=== PATIENT | female | born 1985 | race Two or more races ===

== ENCOUNTER 2024-12-10 16:16 | Inpatient (IN) | payer MEDICAID, SELFPAY ==
[2024-12-10] VITALS (7 sets, daily range): BP systolic 94–120; BP diastolic 53–73; PULSE 82–99; RESP 16–99; TEMP 36.8; BMI 26.9
[2024-12-10 19:15] LABS: Basophils # (Auto) 0.0 Thou/mm3 (0.0-0.2); Basophils % (Auto) 1 % (0-2.5); Eosinophils # (Auto) 0.1 Thou/mm3 (0.0-0.5); Eosinophils % (Auto) 1 % (0-10); Hematocrit 36.3 % (36.0-46.0); Hemoglobin 12.3 g/dL (12.0-16.0); Immature Granulocytes Auto 0.03 Thou/mm3 (0.00-0.00); Lymphocytes # (Auto) 1.5 Thou/mm3 (1.0-4.8); Lymphocytes % (Auto) 21 % (10-50); Mean Corpuscular HGB Conc 33.9 g/dl (31.0-37.0); Mean Corpuscular Hemoglobin 29.1 pg (25.0-35.0); Mean Corpuscular Volume 86 fL (80-100); Monocytes # (Auto) 0.7 Thou/mm3 (0.0-0.8); Monocytes % (Auto) 10 % (0-12); Neutrophils # (Auto) 4.8 Thou/mm3 (1.8-7.7); Neutrophils % (Auto) 66 % (37-80); Nucleated Red Blood Cell # 0.00 Thou/mm3 (0.00-0.00); Nucleated Red Blood Cell % 0 /100 WBC (0); Platelet Count 250 Thou/mm3 (140-440); RDW Standard Deviation 38.2 fL (36.4-46.3); Red Blood Count 4.23 Miln/mm3 (4.00-5.20); White Blood Count 7.2 Thou/mm3 (3.6-11.0)
[2024-12-10] MEDS: RINGERS LACTATED 1000 ML 1,000 ML 100 ML IV (20:14)
[2024-12-10 20:57] LABS: Syphilis Nonreactive (Nonreactive)
--- NOTE | 2024-12-10 22:01 | ESHP_ITS ---
Documentation for date of: 12/10/24 OB Labor/Induct. HPI History of Present Illness Chief complaint: Known demise, 23 6/7 weeks, for induction of labor. : 4 Para: 1 Term pregnancies: 1 pregnancies: 0 Living children: 1 History of Abortions: Spontaneous and Elective: 2 History of Vaginal deliveries: 0 History of sections: Yes History of : No DREW: 04/02/25 Gestational Age (weeks): 23 Gestational Age (days): 6 Indication for induction: other (IUFD measuring 20-6/7 weeks) History of present illness: The patient is a 39-year-old -0-2-[address] Ly. He saw the patient yesterday for a return OB visit and could not find heart tones. She was sent for an official ultrasound at [facility] dated 12/09/2024 and found to have an intrauterine demise measuring 20 weeks and 6 days. Scalp edema, overlapping of the cranium and hydrops was noted. Breech presentation. Patient has a history of a x 1 and 2 miscarriages in the past. She is an insulin requiring diabetic prior to . She states she was diagnosed with diabetes at age 24 and was first managed with oral medications. After her daughter was born 2 years ago she started taking insulin and has been on it ever since. She stated her hemoglobin A1c was around 7 at her first visit. We do have labs from Dr. Ly. Upon reviewing all the pages of Dr. Ly records, her hemoglobin A1c was actually 8.6 in August at 25. Her and mother are at bedside. We did discuss the fact that many times we cannot know why she has an intrauterine demise. I reiterated that she should be almost 24 weeks and the ultrasound shows the baby to measuring measuring 20 weeks and 5 days. The baby's heart likely stopped beating over 3 weeks ago. I explained it is difficult to get chromosomal analysis on tissue that is not fresh. We can try to check some labs including a thyroid and hemoglobin A1c possible antiphospholipid antibodies. The patient and her family agree with this plan. The patient's NIPT was normal. I only see a 16-week structural survey. No 20-week structural survey is on the chart. Of note the patient stated she was on 25 units of Lantus nightly and 15 units of NovoLog each meal. History of Present Dating criteria: LMP confirmed by 1st trimester US Adequate Care: Yes Ultrasounds: other (Normal 16-week ultrasound normal NIPT) Medical complications: other (Pre-existing insulin-dependent diabetes with a first trimester hemoglobin A1c of 8.6) Labs Maternal Blood Type: O Pos Labs: Negative: RPR, Hepatitis B, Rubella Titre (Rubella nonimmune), HIV, Chlamydia, Gonorrhea and Covid-19 and Unknown: Herpes Type 1, Herpes Type 2 and Group Beta Strep Review of Systems Review of Systems Narrative Review of Systems: Prior to the demise being diagnosed, the patient denied any fevers, chills, rashes or signs of infectious diseases. She denied any accidents, any bleeding, or any loss of fluids. Past Medical History Surgical History SURGICAL: Positive Section Meds Home Medications and Allergies Allergies Allergy/AdvReac Type Severity Reaction Status Date / Time No Known Allergies Allergy Verified 07/12/22 15:26 OB Exam Physical Exam Vital signs: Temp Pulse Resp BP 98.3 F 82 16 114/67 12/10/24 20:18 12/10/24 21:07 12/10/24 20:18 12/10/24 21:07 Detailed Labor and Delivery Exam Effacement (%): Thick Cervix position: posterior station: -3 Consistency: firm Presentation: Breech Membranes: intact OB Results Labs 12/10/24 18:00 Labs: Short CBC 12/10/24 Range/Units 18:00 WBC 7.2 (3.6-11.0) Thou/mm3 Hgb 12.3 (12.0-16.0) g/dL Hct 36.3 (36.0-46.0) % Plt Count 250 (140-440) Thou/mm3 OB Assessment & Plan Assessment and Plan (1) Intrauterine in calix , antepartum: Status: Acute Assessment and plan: For Cytotec IOL. 400 mcg vaginally every 3 hours x 5 doses. Explained to the patient that likely she will start cramping and expel everything at once. There is a distinct chance she might need a trip to the operating room and manual removal of the placenta with a curettage. Will add some labs to the demise workup including a another hemoglobin A1c of thyroid and antiphospholipid antibody workup. We can send the placenta but I doubt this will give a lot of information and I told the patient and her family were not likely to get any chromosomal information due to how long ago the baby has passed. (2) History of delivery, currently : Status: Acute
[2024-12-11] VITALS (96 sets, daily range): BP systolic 98–144; BP diastolic 49–81; PULSE 72–113; RESP 15–18; TEMP 36.7–36.9; O2SAT 93–100
[2024-12-11] MEDS: fentaNYL CIT INJ 50 mCg/ML AMP 2ML 100 MCG IVP ×4 (01:54→09:10)
[2024-12-11] MEDS: RINGERS LACTATED 1000 ML 1,000 ML 100 ML IV (05:11)
--- NOTE | 2024-12-11 07:38 | PD.LDPN ---
Documentation for date of: 12/11/24 OB Labor Progress Note Pain Control Comments: Patient getting uncomfortable. Epidural attempted not successful Pelvic Exam Dilation (cm): 0 Effacement (%): 80 station: -1 Amniotic membrane status: Intact Comments: Bulging lower uterine segment. Cx closed Contractions Monitor mode: External Contraction frequency: 0 Status Comments: IUFD 20-5/7 weeks. Assessment and Plan Plan OB labor note: continuous present management Comments: 100 mcg Cytotec placed vaginally at approximately 6:30 in the morning. This is her fourth out of 5 doses. Previous x 1.
--- NOTE | 2024-12-11 08:13 | PD.LDPN ---
Documentation for date of: 12/11/24 OB Labor Progress Note Pelvic Exam Dilation (cm): 0 Effacement (%): 80 station: -1 Amniotic membrane status: Intact Contractions Monitor mode: External Contraction frequency: 0 Assessment and Plan Comments: demise at 20w5d Induction of labor with Misoprostal ongoing Prior C/S Discussed the low risk of uterine rupture with 2nd trimester Misoprostal esimated to be 1 in 414.
[2024-12-11] MEDS: KETOROLAC INJ 30 MG/ML VIAL IVP (09:53)
--- NOTE | 2024-12-11 10:00 | PC.NURSE ---
Per Pharmacy after reviewing chart, patient may have Dilaudid dose if requests 11am or after
--- NOTE | 2024-12-11 10:50 | PC.NURSE ---
MEASUREMENTS: 360G, 12.7OZ 28CM LENGTH 17.5CM HEAD CIRCUMFERENCE
[2024-12-11] MEDS: OXYTOCIN in NS 20 units 20 UNIT/1,000 ML BAG 125 UNIT IV (11:05)
--- NOTE | 2024-12-11 11:09 | OBDSUM_ITS ---
Data (Palafox) Data Hx Section: Yes : 4 Term: 1 : 0 Livin Abortions: Spontaneous & Theraputic: 2 Delivery Data (Palafox) Labor Data Initiation of labor: Induction Induction/Augmentation Agent: Cytotec-Vaginal ROM date: 12/11/24 ROM time: 10:34 Amniotic membrane rupture type: Spontaneous Amniotic fluid description: Blood Tinged Delivery Data EDC: 04/02/25 EDC calculated by:: LMP Onset of labor date: 12/11/24 Onset of labor time: 10:30 Complete dilation date: 12/11/24 Complete dilation time: 10:35 [place] delivery date: 12/11/24 [place] delivery time: 10:35 Gestational age (weeks): 23 Gestational age (days): 6 Placenta delivery date: 12/11/24 Stage 1 total time: Labor - Stage 1 Duration 5 minutes Delivered by: GEILING DO Delivery nurse: MAHAD WOLFE RN [place] nurse: MINDY MÉNDEZ RN Real Estate Account Executive at delivery: No Support person(s) at delivery: MOTHER OF PATIENT Delivery Method Delivery method: Presentation: Breech Anesthesia Type Anesthesia Type: other Placenta Placenta delivery description: Spontaneous Placenta Disposition: Sent to Pathology Cord blood sent to lab: No Episiotomy Episiotomy description: None EBL Estimated blood loss (ml): 50 Additional Procedures None Complications Complications: None Data (Palafox) Data order: 1 [place]'s gender: Male weight (gms): 12.699 oz Weight (pounds): 0 lbs and 12.7 ozs [place] length: 11.02 in 1 minute: 0 5 minutes: 0 10 minutes: 0
--- NOTE | 2024-12-11 11:09 | PD.LDDS ---
DS: Providers Provider Date of admission: 12/10/24 18:10 Primary care physician: Physician No Primary/Family Admitting Provider: Jaelyn Ko MD ([facility]) Attending Provider on Admission: Carlos Weiss MD Attending Provider on DC: Carlos Weiss MD Discharging Provider: Carlos Weiss MD DS: Diagnosis Discharge Diagnosis (1) Vaginal after (): Status: Acute (2) Intrauterine in calix , antepartum: Status: Acute Problem List Completed Was Problem List Reviewed/Reconciled?: Yes Summary/Hosp Course Brief History: The patient is a 39-year-old -0-2-[address] Ly. He saw the patient yesterday for a return OB visit and could not find heart tones. She was sent for an official ultrasound at [facility] dated 12/09/2024 and found to have an intrauterine demise measuring 20 weeks and 6 days. Scalp edema, overlapping of the cranium and hydrops was noted. Breech presentation. Patient has a history of a x 1 and 2 miscarriages in the past. She is an insulin requiring diabetic prior to . She states she was diagnosed with diabetes at age 24 and was first managed with oral medications. After her daughter was born 2 years ago she started taking insulin and has been on it ever since. She stated her hemoglobin A1c was around 7 at her first visit. We do have labs from Dr. Ly. Upon reviewing all the pages of Dr. Ly records, her hemoglobin A1c was actually 8.6 in August at 25. Her and mother are at bedside. We did discuss the fact that many times we cannot know why she has an intrauterine demise. I reiterated that she should be almost 24 weeks and the ultrasound shows the baby to measuring measuring 20 weeks and 5 days. The baby's heart likely stopped beating over 3 weeks ago. I explained it is difficult to get chromosomal analysis on tissue that is not fresh. We can try to check some labs including a thyroid and hemoglobin A1c possible antiphospholipid antibodies. The patient and her family agree with this plan. The patient's NIPT was normal. I only see a 16-week structural survey. No 20-week structural survey is on the chart. Of note the patient stated she was on 25 units of Lantus nightly and 15 units of NovoLog each meal. Peripartum Data Delivery Method: Episiotomy Description: None [place] 1: Disposition of : (Intrauterine demise) Time Spent with Patient Time attestation: Total time spent providing and/or coordinating discharge services: Exam Vital Signs Temp Pulse Resp BP Pulse Ox 98.1 F 82 16 136/75 H 94 L 12/11/24 07:30 12/11/24 11:08 12/11/24 07:30 12/11/24 11:08 12/11/24 11:08 Discharge Plan Plan Patient Disposition: HOME (Self Care) Patient condition on transfer: Stable Prescriptions/Referrals Prescriptions/Med Rec: New ibuprofen 600 mg tablet 600 mg PO Q6H PRN (Reason: pain) Qty: 30 0RF Janumet 50-1,000 mg tablet 1 tab PO BID Qty: 60 1RF Jardiance 25 mg tablet 25 mg PO QAM Qty: 30 1RF Discontinued acetaminophen-codeine 300-15 mg tablet 1 tab PO Q12H PRN (Reason: pain) Qty: 14 0RF ibuprofen 800 mg tablet 800 mg PO Q8H PRN (Reason: pain) Qty: 30 0RF nifedipine [Procardia XL] 60 mg tablet extended release 24hr 60 mg PO QDAY Qty: 30 0RF Referrals: No Primary/Family,Physician [Primary Care Provider] - Patient/Caregiver Discharge Instructions Discharge Activity: activity as tolerated Other Discharge Activity Instructions:: Follow up office with Primary OB in 6 weeks. Education Materials: After a Vaginal , Stillbirth Print Language: Faroese Stand Alone Forms: Lindsey Award Info., Patient Portal Info Letter Discharge Order Discharge Orders: Discharge (Routine); Ordered 12/11/24 Ordered By: Carlos Weiss Planned Discharge Date 12/11/24
[2024-12-11] MEDS: ACETAMINOPHEN 325 MG TABLET 650 MG PO (11:48)
--- NOTE | 2024-12-11 13:25 | PC.NURSE ---
1306-Isela JEFFERS called and notified pt is requesting to go home as soon as possible, pt is stable. Per Isela JEFFERS patient may D/C now, notified RN will call home and D/C after baby has been picked up. Okay per . Also notified of patient's current diabeteic management. Jamunet 1000mg BID and Jardiance 25mg qday both of which pharmacy does not carry. Also, humalog 10-15u AC TID and Lantus 25units at night. Patient to be discharged on this medication regimen, Isela JEFFERS will place orders to pharmacy
--- NOTE | 2024-12-11 13:30 | PC.CM ---
Patient was visited by the Spiritual Care Volunteer who prayed for them. (Volunteer was in the hospital from 10:20-13:30)
--- NOTE | 2024-12-11 13:34 | PC.NURSE ---
1130-donor network called and not eligible for donation 1316-Restaurant Area Manager Rishi asked to come up to clear patient 1317-Podiatric Assistant's office called given information, will return phone call if needed
--- NOTE | 2024-12-11 15:32 | PC.NURSE ---
1500-cleared to go home per Rishi social studies teacher
--- NOTE | 2024-12-11 17:58 | PC.SS ---
DENTAL OFFICE ASSISTANT conducted bedside contact with the patient to address demise situation.? At bedside with patient was spouse, Everett Buckley.? Patient gave permission for FOB to be present.? Infant, Jd; was still .? Patient informed DENTAL OFFICE ASSISTANT that ultrasound on 12-10-24 confirmed infant?s demise.? Patient admitted and induced.? Patient?s emotional status appropriate given situation.? Patient engaged and responsive.? Patient confirmed sense of sadness.? Patient stated that she possess adequate support system to include spouse, mother and father.? Spouse confirmed that patient will not be left alone.? Patient understood need to process situation.? Patient provided resources to include mental health and loss support groups.? Patient denied intent/plan of SI/HI.? Spouse voiced no concerns with patient?s current emotional status.? Family has informed bedside nurse of home preference.? Patient cleared for discharge. Bedside nurse updated.
== END 2024-12-11 15:15 | disposition home or self-care (01) | DRG 560 ==
PROVIDERS: Admitting Provider Obstetrics & Gynecology; Visit Provider Specialist
DX: O36.4XX0 Maternal care for intrauterine death, not applicable or unspecified (principal); Z37.1 Single stillbirth; Z3A.23 23 weeks gestation of pregnancy; O24.32 Unspecified pre-existing diabetes mellitus in childbirth; E11.9 Type 2 diabetes mellitus without complications; O32.1XX0 Maternal care for breech presentation, not applicable or unspecified; O34.219 Maternal care for unspecified type scar from previous cesarean delivery; Z87.59 Personal history of other complications of pregnancy, childbirth and the puerperium; Z79.4 Long term (current) use of insulin; Z79.84 Long term (current) use of oral hypoglycemic drugs
CPT/HCPCS: 36415; 59409; 85025; 86780; 86850; 86900; 86901; 86923; 94762; J1885; J2590; J2795; J3010; J7120; A9270